=== PATIENT | male | born 1945 | race Caucasian/White ===

== ENCOUNTER → 2018-11-22 | Outpatient (CLI) | payer OTHER ==
[~2018-11-22] MED LIST: ASA5UEC OR; CARDIZEM CD180 MG PO; CARVEDILOL25 MG PO; LISINOPRIL40 MG PO; PLAVIX 75 MG TA75 MG PO; ZOCOR5 MG PO
== END ==
LOC: M.RAD 07:30
DX: M17.11 Unilateral primary osteoarthritis, right knee (principal); M16.11 Unilateral primary osteoarthritis, right hip; M25.761 Osteophyte, right knee; M25.751 Osteophyte, right hip; S83.101A Unspecified subluxation of right knee, initial encounter; X58.XXXA Exposure to other specified factors, initial encounter; Y93.89 Activity, other specified; Y92.89 Other specified places as the place of occurrence of the external cause; Y99.8 Other external cause status